=== PATIENT | male | born 1980 | race African-American/Black ===

== ENCOUNTER 2020-10-29 16:17 | Emergency (ER) | payer OTHER ==
[~2020-10-29] VITALS: Ht 177.8 cm; Wt 65.8 kg
[~2020-10-29 16:17] MED LIST: HYDROCODONE-AP1 EAC6 PO; NOHOMEMEDICATIONS
[2020-10-29 16:28] VITALS: BP 103/76
[2020-10-29 16:58] LABS: ABSOLUTE NEUTROPHILS 2.1 thou/uL (1.4-8.2); BASOPHILS 1.3 % (0.0-2.0); EOSINOPHILS 4.4 % (0.0-3.0); HEMATOCRIT 39.7 % (42.0-52.0); HEMOGLOBIN 13.4 gm/dL (14.0-18.0); LYMPHOCYTES 40.7 % (24.0-44.0); MCH 29.4 pg (26.0-34.0); MCHC 33.9 g/dL (28.0-37.0); MCV 86.7 fL (80.0-100.0); MONOCYTES 7.3 % (1.0-8.0); PLATELET COUNT 182 thou/uL (150-400); POLYS 46.3 % (36.0-66.0); RBC 4.57 mil/uL (4.50-6.00); RDW 13.8 % (10.5-14.5); WBC 4.6 thou/uL (4.0-11.0)
[2020-10-29 17:07] LABS: ANION GAP 8 mmol/L (7-16); BUN 17 mg/dL (7-18); CALCIUM 9.4 mg/dL (8.5-10.1); CHLORIDE 102 mmol/L (98-107); CO2 29 mmol/L (21-32); CREATININE 1.2 mg/dL (0.7-1.3); GLUCOSE 81 mg/dL (74-106); POTASSIUM 4.2 mmol/L (3.5-5.1); SODIUM 139 mmol/L (136-145)
[2020-10-29 17:17] LABS: ALBUMIN 4.2 g/dL (3.4-5.0); SGOT 33 U/L (15-37); SGPT 28 U/L (16-63); TOTAL BILIRUBIN 0.7 mg/dL (0.2-1.0); TOTAL PROTEIN 7.5 g/dL (6.4-8.2); TROPONIN-I <0.06 ng/mL (<0.06)
--- NOTE | 2020-10-30 07:17 | EKG ---
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 electrolyte abn. No previous ECG available for comparison Electronically Signed On 10-30-2020 7:17:33 CDT by Jarad Macias [email or web address] <ELECTRONICALLY SIGNED> By: Jarad Macias MD, [facility] 10/30/20 0717 D: [id number] Jarad Macias MD, FACC /EPI
== END 2020-10-29 17:58 | disposition home or self-care (01) ==
LOC: ER 16:17
PROVIDERS: Student in an Organized Health Care Education/Training Program
DX: M62.82 Rhabdomyolysis (principal); Z79.891 Long term (current) use of opiate analgesic; Z88.0 Allergy status to penicillin; Z88.8 Allergy status to other drugs, medicaments and biological substances